=== PATIENT | male | born 1950 | race Caucasian/White ===

== ENCOUNTER 2017-01-23 10:38 | Inpatient (IN) | payer OTHER, MEDICAID ==
--- NOTE | 2017-01-22 17:08 | GHP ---
[f rep st] PREOP HISTORY AND PHYSICAL ADMISSION DIAGNOSIS: Prostate cancer. HISTORY OF PRESENT ILLNESS: This is a 66-year-old gentleman who has had adenocarcinoma of the prostate. He has had a 4K score of 53%. MRI revealed left-sided high PI-RAD 5 lesion, and prostate biopsy revealed a Michael score of 7 cancer of the prostate. He has reviewed his options of therapy and has elected to undergo bilateral pelvic lymphadenectomy and radical retropubic prostatectomy robotically. Indication, complications, and options have all been discussed. PAST MEDICAL HISTORY: Asthma, hypertension, hypercholesterolemia, prostate cancer. PAST SURGICAL HISTORY: Eye surgery, hand, inguinal hernia, and tonsillectomy. MEDICATIONS: Aspirin, lisinopril, simvastatin, and Ventolin. ALLERGIES: Percocet, penicillin, and morphine. FAMILY HISTORY: For heart disease, prostate cancer, and hypertension. SOCIAL HISTORY: Nondrinker. Former tobacco smoker. Immunizations up to date. REVIEW OF SYSTEMS: Negative cardiac, respiratory, GI, and endocrine. PHYSICAL EXAMINATION: VITAL SIGNS: Stable. CHEST: Clear. HEART: Regular rate and rhythm. ABDOMEN: Normal. No organomegaly, rebound, or guarding. : Prostate on previous exam showed nodule at the apex of the prostate. At the present time, he is admitted for bilateral pelvic lymphadenectomy and radical retropubic prostatectomy. His PSA as of 11/11/2016 was 40, and he is admitted as noted. /[id number]/MODL MTDD
[2017-01-23] MEDS ORDERED: BUPIVACAINE 0.5% 30 ML SDV ONE (10:58)
[2017-01-23] MEDS ORDERED: LR 1,000 ML IV ONE (11:11)
[2017-01-23] MEDS ORDERED: ceFAZolin 2 GM/SWFI 2 GM/20 ML SYR IVP ONE (12:49)
--- NOTE | 2017-01-23 12:49 | PDHPUP ---
History & Physical Update H&P update statement: This history and physical update is based on an assessment of the patient which was completed after admission or registration (within 24 hours), but prior to the surgery/procedure. H&P update: H&P reviewed & patient examined, no change in patient's condition since H&P completed
[2017-01-23] MEDS ORDERED: MIDAZOLAM 2 MG/2 ML VIAL ONE (13:08)
[2017-01-23] MEDS ORDERED: MIDAZOLAM 2 MG/2 ML VIAL IVP ONE (13:09)
--- NOTE | 2017-01-23 13:12 | PDANEPAE ---
ANE History of Present Illness prostate CA s/f DaVinci assisted prostatectomy ANE Past Medical History - Cardiovascular History Hx Hypertension: Yes Hx Arrhythmias: No Hx Chest Pain: No Hx Coronary Artery / Peripheral Vascular Disease: No Hx CHF / Valvular Disease: Yes Hx Palpitations: No Cardiovascular History Comment: leaky aortic valve-mild AI - Pulmonary History Hx COPD: No Hx Asthma/Reactive Airway Disease: Yes Hx Recent Upper Respiratory Infection: No Hx Oxygen in Use at Home: No Hx Sleep Apnea: No Sleep Apnea Screening Result - Last Documented: Positive Pulmonary History Comment: mild asthma allergy triggered - Neurologic History Hx Cerebrovascular Accident: No Hx Seizures: No Hx Dementia: No - Endocrine History Hx Diabetes: No - Renal History Hx Renal Disorders: No - Liver History Hx Hepatic Disorders: No - Neurological & Psychiatric Hx Hx Neurological and Psychiatric Disorders: No - Cancer History Hx Cancer: Yes Cancer History Comment: prostate cancer - Congenital Disorder History Hx Congenital Disorders: No - GI History Hx Gastrointestinal Disorders: No - Other Health History Other Health History: bridge - Chronic Pain History Chronic Pain: No - Surgical History Prior Surgeries: hernia ANE Review of Systems Review of Systems: - Exercise capacity METS (RN): 5 METS ANE Patient History - Allergies Allergies/Adverse Reactions: acetaminophen [From Percocet] Allergy (Verified 01/13/17 14:33) Vomiting morphine Allergy (Verified 01/13/17 14:33) Anaphylaxis Shock oxycodone [From Percocet] Allergy (Verified 01/13/17 14:33) Vomiting Penicillins Allergy (Verified 01/13/17 14:33) Hives - Home Medications Home medications: home medication list seen and reviewed Home Medications: Albuterol [Proventil Inhaler HFA (*)] 1 - 2 puffs IH DAILY PRN 01/13/17 [Last Taken 01/22/17] Aspirin [Aspirin 81mg (*)] 81 mg PO DAILY 01/13/17 [Last Taken 01/02/17] Herbals/Supplements -Info Only 1 ea PO DAILY 01/13/17 [Last Taken 01/20/17] Losartan Potassium [Cozaar 50 mg (*)] 50 mg PO DAILY 01/13/17 [Last Taken 07:00] [place]-3 Fatty Acids [Fish Oil 1000 mg (*)] 1,000 mg PO DAILY 01/13/17 [Last Taken 01/20/17] Simvastatin [Zocor] 40 mg PO DAILY18 01/13/17 [Last Taken 01/22/17 18:00] - NPO status NPO Status: no food or drink >8 hours NPO Since - Liquids (Date): 01/22/17 NPO Since - Liquids (Time): 22:30 NPO Since - Solids (Date): 01/22/17 NPO Since - Solids (Time): 18:30 - Anes Hx Anes Hx: no prior problems - Smoking Hx Smoking Status: Never smoked - Alcohol Use Alcohol Use: None - Family Anes Hx Family Hx Anesthesia Complications: none ANE Labs/Vital Signs - Labs - CBC WBC: reviewed and okay - Vital Signs Blood Pressure: 167/97 Heart Rate: 65 Respiratory Rate: 17 O2 Sat (%): 95 Height: 157.48 cm Weight: 63.503 kg ANE Physical Exam - Airway Mallampati Score: Class 1 Mouth exam: normal dental/mouth exam - Pulmonary Pulmonary: no respiratory distress - Cardiovascular Cardiovascular: regular rate and rhythym - ASA Status ASA Status: II ANE Anesthesia Plan Anesthesia Plan: general endotracheal anesthesia (R/B/A explained and patient agrees to proceed)
[2017-01-23] MEDS ORDERED: ROCURONIUM 100 MG/10 ML VIAL ONE (13:14)
[2017-01-23] MEDS ORDERED: fentaNYL 100 MCG/2 ML INJ ONE ×3 (13:14→17:10)
[2017-01-23] MEDS ORDERED: PROPOFOL/EMULSION 500 MG/50 ML BOTTLE IV ONE (13:14)
[2017-01-23] MEDS ORDERED: LIDOCAINE HCL 160 MG/4 ML LTA KIT TP ONE (13:15)
[2017-01-23] MEDS ORDERED: DEXAMETHASONE 4 MG/ML VIAL ONE ×2 (13:15)
[2017-01-23] MEDS ORDERED: ONDANSETRON 4 MG/2 ML VIAL ONE (13:15)
[2017-01-23] MEDS ORDERED: LIDOCAINE 2% 100 MG/5 ML SYR ONE (13:15)
[2017-01-23] MEDS ORDERED: ROCURONIUM 50 MG/5 ML VIAL ONE (14:33)
[2017-01-23] MEDS ORDERED: THROMBIN(HUM PLAS)/FIBRINOG/CA 5 ML VIAL TP ONE ×2 (14:44→15:16)
[2017-01-23] MEDS ORDERED: PROPOFOL 200 MG/20 ML VIAL ONE ×2 (14:45→15:39)
[2017-01-23] MEDS ORDERED: SUGAMMADEX SODIUM 200 MG/2 ML VIAL IVP ONE (16:03)
[2017-01-23] MEDS ORDERED: GLYCOPYRROLATE 0.2 MG/1 ML VIAL ONE (16:08)
[2017-01-23] MEDS ORDERED: HYDROCODONE/APAP 5/325 TAB PO PRN (16:11)
[2017-01-23] MEDS ORDERED: ONDANSETRON 4 MG/2 ML VIAL IVP PRN ×2 (16:11→16:47)
[2017-01-23] MEDS ORDERED: MEPERIDINE 25 MG/ML SYR IVP PRN (16:11)
[2017-01-23] MEDS ORDERED: ACETAMINOPHEN 500 MG TAB PO PRN (16:11)
[2017-01-23] MEDS ORDERED: NALOXONE HCL 0.4 MG/ML INJ IVP PRN (16:11)
[2017-01-23] MEDS ORDERED: METOCLOPRAMIDE 10 MG/2 ML VIAL IVP PRN (16:11)
[2017-01-23] MEDS ORDERED: PROMETHAZINE HCL 25 MG/ML INJ IVP PRN (16:11)
[2017-01-23] MEDS ORDERED: DEXAMETHASONE 4 MG/ML VIAL IVP PRN (16:11)
[2017-01-23] MEDS ORDERED: ALBUTEROL 3 ML DEYVIAL IH PRN (16:11)
[2017-01-23] MEDS ORDERED: HYDROmorphONE/DILAUDID 1 MG/ML INJ IVP PRN (16:11)
[2017-01-23] MEDS ORDERED: LR 500 ML IV PRN (16:11)
[2017-01-23] MEDS ORDERED: MEPERIDINE 25 MG/ML SYR ONE (16:45)
[2017-01-23] MEDS ORDERED: ALBUTEROL 200 PUFFS/18 GM MDI IH PRN (16:46)
[2017-01-23] MEDS ORDERED: ACETAMINOPHEN 325 MG TAB PO PRN (16:47)
[2017-01-23] MEDS ORDERED: ONDANSETRON DISINTEGRATING 4 MG TAB PO PRN (16:47)
[2017-01-23] MEDS ORDERED: ZOLPIDEM TARTRATE 5 MG TAB PO PRN (16:58)
[2017-01-23] MEDS: fentaNYL 100 MCG/2 ML INJ IVP PRN ×2 (17:11→17:26)
--- NOTE | 2017-01-23 17:13 | GOP ---
[f rep st] OPERATIVE REPORT DATE OF OPERATION: 01/23/2017 SURGEON: Gregorio Saab MD [employer] SUPERINTENDENT: Amberly Santos CFA. ANESTHESIA: General anesthesia. ANESTHESIOLOGIST: Michael Posadas MD. PREOPERATIVE DIAGNOSIS: Adenocarcinoma of the prostate. POSTOPERATIVE DIAGNOSIS: Adenocarcinoma of the prostate. PROCEDURE PERFORMED: Robotic assisted radical prostatectomy and bilateral pelvic lymphadenectomy. FINDINGS: SPECIMENS: Sent to pathology. I will call his brother to describe his postoperative findings. ESTIMATED BLOOD LOSS: Per Anesthesia 150 mL. DESCRIPTION OF PROCEDURE: After undergoing general anesthesia, being prepped and draped in normal st erile fashion in the appropriate robotic position, an appropriate time-out was fulfilled. Then at th at point, a Veress needle was placed through the supraumbilical site and abdomen was insufflated to 1 5 mmHg pressure with CO2 and then at that point, under direct vision two 12 mm ports were placed and three 8 mm ports were placed. I then docked the robot and with robotic instrumentation was able to m obilize the sigmoid colon and bring the colon out of the pelvis and identify the vasa on both the rig ht and left sides as they went into the base of the prostate. The peritoneum was incised and develop ed a plane between the seminal vesicles and the bladder. The seminal vesicles, posterior part of the bladder anterior to the rectum. He did have some inflammation on the left side that seemed to get m ore thickened. Then the vasa were transected. Seminal vesicles dissected out and hemostasis via marah ctrocautery and Hem-o-loks. I went to the anterior part of the bladder. He had a previous laparosco pic hernia repair and he had welding of the bladder to the mesh in a posterior fashion, so I dissecte d off by staying on the mesh and took the bladder down to where I could identify the endopelvic fasci a on the right and left sides. This mesh actually went below the symphysis pubis and somewhat oblite rated the anterior prostatic space, and the bladder was adhered to a densely, but no cystotomies were made during the dissection. I incised the endopelvic fascia on the right and left sides and then th e pubic prostatic ligaments taken down. Deep dorsal vein was ligated with 2 #0 Vicryl sutures and th en focused attention to the bladder neck. I tried to preserve the circular fibers of the bladder nec k the best way possible. The anterior bladder as noted previously was thin from the prior laparoscop ic hernia and welding of the bladder to the mesh. I opened the anterior part of the bladder neck and then identified the posterior bladder neck which was incised, and then dissected out the neurovascul ar bundle on the left side and the right side both and hemostasis with Hem-o-loks. At that point, fo cused attention then to the apex of the prostate and that was taken down sharply. Because of the sca rring, the sutures that were on the dorsal vein came off so increased the pressure to 20 mmHg pressur e. Then used A V-lock stitch to close the deep dorsal vein of the penis. Then, at that point, compl eted the apical dissection and grossly there was no residual cancer identified at that point. Then t he urethrovesical anastomosis was performed using a running 3-0 Monocryl suture. It was tested to be watertight and bridged with the Veras catheter and urine getting clear. At that point, used Evicel for anastomotic reinforcement. Then the pelvic lymphadenectomy on the left side. Dissection margins in the mid aspect, the external iliac vein down to the obturator nerve and up to the bifurcation of the common iliac vein. There was only fibrous areolar tissue and there was really not much lymph nod al tissue in that grossly. Then on the right side same dissection margins, and there was what appear ed to be 1 large lymph node that was normal in appearance and lymphostasis was provided with Hem-o-lo ks. At that point, the specimen was placed in a bag and then Fan-Cormier drain was placed in the s pace of Retzius and brought out through 1 of the port sites and then undocked the robot and fascial s uture closure device to use on the 12 mm promotional advertising assistant port site and then opened the camera incision so I could deliver the bag and the specimen and closed the anterior rectus fascia and linea alba with a r unning 0 Vicryl at approximately 5 mm depth back and 5 mm in between each 1 they were closed. At ramiro t point, the wounds were irrigated and 4-0 Monocryl used to close the skin edges. Drain was sewn in place with a 3-0 Vicryl silk and he tolerated the procedure well. /[id number]/MODL
[2017-01-23] MEDS ORDERED: KETOROLAC 15 MG/1 ML SDV IVP PRN (17:14)
[2017-01-23] MEDS ORDERED: LABETALOL HCL 5 MG/ML 20 ML MDV ONE (17:19)
[2017-01-23] MEDS: LABETALOL HCL 5 MG/ML 20 ML MDV IVP PRN ×5 (17:19→18:11)
[2017-01-23] MEDS ORDERED: ATORVASTATIN CALCIUM 20 MG TAB PO SCH (18:00)
--- NOTE | 2017-01-23 18:22 | POSTANESTH ---
Post Anesthetic Evaluation Cardiovascular Status: Tx Hyper/Hypo-tension (diatolics 100-105 treatment underway) Respiratory Status: Normal, Stable Level of Consciousness/Mental Status: Can Participate in Eval Pain Control: Adequate, Prn Tx Ordered Nausea/Vomiting Control: Adequate, Prn Tx Ordered Complications Possibly Related to Anesthesia: None Noted
[2017-01-23] MEDS: D5W 1/2 NS 1,000 ML IV SCH (19:28)
[2017-01-23] MEDS: SIMVASTATIN 40MG TAB PO SCH (19:49)
[2017-01-24 04:57] LABS: PLATELET COUNT 163 10^3/uL (150-400)
[2017-01-24] MEDS: D5W 1/2 NS 1,000 ML IV SCH ×2 (05:43→16:20)
[2017-01-24] MEDS: IBUPROFEN 200 MG TAB PO PRN ×3 (05:49→18:59)
[2017-01-24] MEDS ORDERED: Herbals/Supplements -Info Only PO SCH (09:00)
[2017-01-24] MEDS: ASPIRIN 81 MG CHEWABLE TAB PO SCH (09:08)
[2017-01-24] MEDS: OMEGA-3 FATTY ACIDS 1,000 MG CAP PO SCH (09:08)
[2017-01-24] MEDS: LOSARTAN POTASSIUM 50 MG TAB PO SCH (09:11)
--- NOTE | 2017-01-24 14:30 | SOAPPROG ---
SOAP Progress Note Assessment/Plan: Assessment: post op prostatectomy Plan: Continue to ambulate. Consider d/c tomorrow. 01/24/17 14:28 Subjective: Gas pain but otherwise doing well. Not ready for d/c Objective: Vital Signs Temp Pulse Resp BP Pulse Ox 36.9 C 57 L 16 133/71 H 94 01/24/17 11:12 01/24/17 11:12 01/24/17 11:12 01/24/17 11:12 01/24/17 11:12 Laboratory Results 01/24/17 04:50 01/24/17 04:50 01/23/17 01/24/17 01/25/17 05:59 05:59 05:59 Intake Total 2000 Output Total 1020 610 Balance -1020 1390 Physical Exam - Physical Exam General Appearance: alert, no apparent distress Respiratory: normal breath sounds, No respiratory distress Cardiac/Chest: regular rate, rhythm Abdomen: No distended (CARLOS MANUEL draining bloody fluid into bag. Lightly bloody urine in ortiz.) ICD10 Worksheet Patient Problems: Problems Problem Status Onset Prostate cancer Acute - ICD10 Problem Qualifiers (1) Prostate cancer
--- NOTE | 2017-01-24 14:30 | SOAPPROG ---
SOAP Progress Note Assessment/Plan: Assessment: post op prostatectomy Plan: Continue to ambulate. Consider d/c tomorrow. 01/24/17 14:28 Subjective: Gas pain but otherwise doing well. Not ready for d/c Objective: Vital Signs Temp Pulse Resp BP Pulse Ox 36.9 C 57 L 16 133/71 H 94 01/24/17 11:12 01/24/17 11:12 01/24/17 11:12 01/24/17 11:12 01/24/17 11:12 Laboratory Results 01/24/17 04:50 01/24/17 04:50 01/23/17 01/24/17 01/25/17 05:59 05:59 05:59 Intake Total 2000 Output Total 1020 610 Balance -1020 1390 Physical Exam - Physical Exam General Appearance: alert, no apparent distress Respiratory: normal breath sounds, No respiratory distress Cardiac/Chest: regular rate, rhythm Abdomen: No distended (CARLOS MANUEL draining bloody fluid into bag. Lightly bloody urine in ortzi.) ICD10 Worksheet Patient Problems: Problems Problem Status Onset Prostate cancer Acute - ICD10 Problem Qualifiers (1) Prostate cancer
[2017-01-24] MEDS: SIMVASTATIN 40MG TAB PO SCH (17:16)
[2017-01-25] MEDS: D5W 1/2 NS 1,000 ML IV SCH (02:17)
[2017-01-25 05:26] VITALS: O2SAT 94
[2017-01-25 07:42] VITALS: BP 162/84; PULSE 62; RESP 17; TEMP 98.5
--- NOTE | 2017-01-25 08:12 | SOAPPROG ---
SOAP Progress Note Assessment/Plan: Assessment: Prostate cancer Acute POD 2, CARLOS MANUEL drain had some urine and plan to continue present drainage and will dc with ortiz and CARLOS MANUEL drain Plan: As noted 01/25/17 08:10 Subjective: doing well Objective: Vital Signs Temp Pulse Resp BP Pulse Ox 36.9 C 62 17 162/84 H 94 01/25/17 07:32 01/25/17 07:32 01/25/17 07:32 01/25/17 07:32 01/25/17 07:32 Laboratory Results 01/24/17 04:50 01/24/17 04:50 01/24/17 01/25/17 01/26/17 05:59 05:59 05:59 Intake Total 4834 Output Total 1020 3930 Balance -1020 904 Physical Exam - Physical Exam General Appearance: alert Respiratory: No respiratory distress Cardiac/Chest: regular rate, rhythm Abdomen: soft Back: No CVA tenderness Neuro/Psych: alert, oriented x 3 ICD10 Worksheet Patient Problems: Problems Problem Status Onset Prostate cancer Acute
[2017-01-25] MEDS: IBUPROFEN 200 MG TAB PO PRN (09:12)
[2017-01-25] MEDS: ASPIRIN 81 MG CHEWABLE TAB PO SCH (09:13)
[2017-01-25] MEDS: OMEGA-3 FATTY ACIDS 1,000 MG CAP PO SCH (09:13)
[2017-01-25] MEDS: LOSARTAN POTASSIUM 50 MG TAB PO SCH (09:13)
--- NOTE | 2017-01-25 14:29 | ASDISCHSUM ---
Discharge Information Plan Status: Medically Cleared to Leave: Discharge Date:01/25/2017 01:20 PM CM D/C Disposition: ADT D/C Disposition:Home, Routine, Self-Care Projected Discharge Date:01/25/2017 01:20 PM Transportation at D/C: Discharge Delay Reason: Follow-Up Date:01/25/2017 01:20 PM Discharge Slot: Final Diagnosis: Placement Information Patient Contact Information Contact Name:SHARI Relationship: Address:[address] City:[place] Alternate Phone: State/Zip Code:[place] [address] Email: Financial Information Financial Class: Primary Plan Desc:MEDICARE INPATIENT Primary Plan Number:[id number] Secondary Plan Desc:[place] Secondary Plan Number:[id number] Assessment Information [facility] CM Progress Note CM Note CM Note Notes: Pt admitted for prostatectomy. He will DC today with no needs. Date Signed: 01/25/2017 02:27 PM Electronically Signed By:Monae Santiago LCSW Intervention Information
--- NOTE | 2017-01-25 14:29 | ASDISCHSUM ---
Discharge Information Plan Status: Medically Cleared to Leave: Discharge Date:01/25/2017 01:20 PM CM D/C Disposition: ADT D/C Disposition:Home, Routine, Self-Care Projected Discharge Date:01/25/2017 01:20 PM Transportation at D/C: Discharge Delay Reason: Follow-Up Date:01/25/2017 01:20 PM Discharge Slot: Final Diagnosis: Placement Information Patient Contact Information Contact Name:SHARI Relationship: Address:[address] City:[place] Alternate Phone: State/Zip Code:[place] [address] Email: Financial Information Financial Class: Primary Plan Desc:MEDICARE INPATIENT Primary Plan Number:[id number] Secondary Plan Desc:[place] Secondary Plan Number:[id number] Assessment Information [facility] CM Progress Note CM Note CM Note Notes: Pt admitted for prostatectomy. He will DC today with no needs. Date Signed: 01/25/2017 02:27 PM Electronically Signed By:Monae Santiago LCSW Intervention Information
--- NOTE | 2017-01-25 14:29 | ASDISCHSUM ---
Discharge Information Plan Status: Medically Cleared to Leave: Discharge Date:01/25/2017 01:20 PM CM D/C Disposition: ADT D/C Disposition:Home, Routine, Self-Care Projected Discharge Date:01/25/2017 01:20 PM Transportation at D/C: Discharge Delay Reason: Follow-Up Date:01/25/2017 01:20 PM Discharge Slot: Final Diagnosis: Placement Information Patient Contact Information Contact Name:SHARI Relationship: Address:[address] City:[place] Alternate Phone: State/Zip Code:[place] [address] Email: Financial Information Financial Class: Primary Plan Desc:MEDICARE INPATIENT Primary Plan Number:[id number] Secondary Plan Desc:[place] Secondary Plan Number:[id number] Assessment Information [facility] CM Progress Note CM Note CM Note Notes: Pt admitted for prostatectomy. He will DC today with no needs. Date Signed: 01/25/2017 02:27 PM Electronically Signed By:Monae Santiago LCSW Intervention Information
== END 2017-01-25 13:20 | disposition home or self-care (01) | DRG 708 ==
LOC: F3E 10:38 → F1N 18:30
PROVIDERS: ADMIT Specialist; ATTEND Specialist
PROC: 0VT04ZZ Resection of Prostate, Percutaneous Endoscopic Approach (ICD-10-PCS; principal; 2017-01-23 12:30)
PROC: 8E0W4CZ Robotic Assisted Procedure of Trunk Region, Percutaneous Endoscopic Approach (ICD-10-PCS; principal; 2017-01-23 12:30)
PROC: 07BC4ZX Excision of Pelvis Lymphatic, Percutaneous Endoscopic Approach, Diagnostic (ICD-10-PCS; principal; 2017-01-23 12:30)
CPT/HCPCS: J0690; J1100; J1885; J2001; J2250; J2405; J2704; J3010; J3490

== ENCOUNTER → 2017-07-29 | Outpatient (CLI) | payer OTHER, MEDICAID | LOC: BHCLAF 10:00 | PROVIDERS: ATTEND Internal Medicine Cardiovascular Disease | DX: I35.1 Nonrheumatic aortic (valve) insufficiency (principal); I35.0 Nonrheumatic aortic (valve) stenosis; I10 Essential (primary) hypertension; E78.00 Pure hypercholesterolemia, unspecified | CPT/HCPCS: 93005-PO ==

== ENCOUNTER → 2017-08-12 | Outpatient (CLI) | payer OTHER, MEDICAID | LOC: BHFA 11:30 | PROVIDERS: ATTEND Internal Medicine Cardiovascular Disease | DX: I35.1 Nonrheumatic aortic (valve) insufficiency (principal) ==

== ENCOUNTER → 2017-11-12 | Outpatient (CLI) | payer MEDICAID, OTHER | LOC: FIMAGING 07:37 | PROVIDERS: ATTEND Family Medicine | DX: R19.03 Right lower quadrant abdominal swelling, mass and lump (principal) ==

== ENCOUNTER 2018-08-10 09:54 | Day surgery (SDC) | payer OTHER, MEDICAID ==
[2018-08-10] MEDS ORDERED: ceFAZolin 2 GM/DEXTROSE 100 ML IV ONE (10:12)
[2018-08-10] MEDS ORDERED: LR 1,000 ML IV ONE (10:13)
[2018-08-10] MEDS ORDERED: BUPIVACAINE 0.5% 30 ML SDV ONE (12:35)
--- NOTE | 2018-08-10 12:59 | PDANEPAE ---
ANE History of Present Illness ventral hernia, here for repair with robotic assist ANE Past Medical History - Cardiovascular History Hx Hypertension: Yes Hx Arrhythmias: No Hx Chest Pain: No Hx Coronary Artery / Peripheral Vascular Disease: Yes Hx CHF / Valvular Disease: Yes Hx Palpitations: No Cardiovascular History Comment: AORTIC VALVE STENOSIS. HYPERLIPIDEMIA - Pulmonary History Hx COPD: No Hx Asthma/Reactive Airway Disease: Yes Hx Recent Upper Respiratory Infection: No Hx Oxygen in Use at Home: No Hx Sleep Apnea: No Sleep Apnea Screening Result - Last Documented: Positive Pulmonary History Comment: mild asthma allergy triggered -allergies. inhaler - Neurologic History Hx Cerebrovascular Accident: No Hx Seizures: No Hx Dementia: No - Endocrine History Hx Diabetes: No - Renal History Hx Renal Disorders: No - Liver History Hx Hepatic Disorders: No - Neurological & Psychiatric Hx Hx Neurological and Psychiatric Disorders: No - Cancer History Hx Cancer: Yes Cancer History Comment: prostate cancer - Congenital Disorder History Hx Congenital Disorders: No - GI History Hx Gastrointestinal Disorders: No - Other Health History Other Health History: past mild anemia w/cancer tx. bridge partial - Chronic Pain History Chronic Pain: No - Surgical History Prior Surgeries: PROSTATECTOMY. ING HERNIA. HAND SURGERY. EYE SURGERY TEENS. TONSILLECTOMY. WISDOM TEETH. CATARACTS ANE Review of Systems Review of Systems: - Exercise capacity METS (RN): 5 METS ANE Patient History - Allergies Allergies/Adverse Reactions: morphine Allergy (Severe, Verified 01/23/17 16:28) Anaphylaxis Shock acetaminophen [From Percocet] Allergy (Verified 01/13/17 14:33) Vomiting oxycodone [From Percocet] Allergy (Verified 01/13/17 14:33) Vomiting Penicillins Allergy (Verified 01/13/17 14:33) Hives - Home Medications Home Medications: Albuterol [Proventil Inhaler HFA (*)] 1 - 2 puffs IH DAILY PRN 01/13/17 [Last Taken 08/10/18] Aspirin [Aspirin 81mg (*)] 81 mg PO DAILY 01/13/17 [Last Taken 2 Weeks Ago ~] Herbals/Supplements -Info Only 1 ea PO DAILY 01/13/17 [Last Taken 1 Week Ago ~] Losartan Potassium [Cozaar 50 mg (*)] 50 mg PO DAILY 01/13/17 [Last Taken ] [place]-3 Fatty Acids [Fish Oil 1000 mg (*)] 1,000 mg PO DAILY 01/13/17 [Last Taken 1 Week Ago ~08/03/18] Simvastatin [Zocor] 40 mg PO DAILY18 01/13/17 [Last Taken 08/09/18] - NPO status NPO Since - Liquids (Date): 08/10/18 NPO Since - Liquids (Time): 07:00 NPO Since - Solids (Date): 08/09/18 NPO Since - Solids (Time): 20:00 - Smoking Hx Smoking Status: Never smoked - Family Anes Hx Family Hx Anesthesia Complications: none ANE Labs/Vital Signs - Vital Signs Blood Pressure: 184/98 Heart Rate: 59 Respiratory Rate: 16 O2 Sat (%): 97 Height: 157.48 cm Weight: 67.132 kg ANE Physical Exam - Airway Neck exam: FROM Mallampati Score: Class 2 Mouth exam: normal dental/mouth exam - Pulmonary Pulmonary: no respiratory distress, no rales or rhonchi - Cardiovascular Cardiovascular: regular rate and rhythym, no murmur, rub, or gallop - ASA Status ASA Status: III ANE Anesthesia Plan Anesthesia Plan: general endotracheal anesthesia Regional Anesthesia: single shot NB Total IV Anesthesia: No
[2018-08-10] MEDS ORDERED: MIDAZOLAM 2 MG/2 ML VIAL IVP ONE (13:00)
[2018-08-10] MEDS ORDERED: ROCURONIUM 100 MG/10 ML VIAL ONE (14:30)
[2018-08-10] MEDS ORDERED: PROPOFOL 200 MG/20 ML VIAL ONE (14:30)
[2018-08-10] MEDS ORDERED: LIDOCAINE 2% 100 MG/5 ML SYR ONE (14:30)
[2018-08-10] MEDS ORDERED: fentaNYL 100 MCG/2 ML INJ ONE (14:30)
[2018-08-10] MEDS ORDERED: KETOROLAC 30 MG/1 ML SDV ONE (16:11)
[2018-08-10] MEDS ORDERED: ONDANSETRON 4 MG/2 ML VIAL ONE (16:11)
[2018-08-10] MEDS ORDERED: ROCURONIUM 50 MG/5 ML VIAL ONE (16:11)
[2018-08-10] MEDS ORDERED: SUGAMMADEX SODIUM 200 MG/2 ML VIAL IVP ONE (16:11)
[2018-08-10] MEDS ORDERED: DEXAMETHASONE 4 MG/ML VIAL ONE (16:11)
[2018-08-10] MEDS ORDERED: HYDROmorphONE/DILAUDID 2 MG/ML INJ ONE (16:30)
[2018-08-10] MEDS ORDERED: NALOXONE HCL 0.4 MG/ML INJ IVP PRN (16:34)
[2018-08-10] MEDS ORDERED: fentaNYL 100 MCG/2 ML INJ IVP PRN (16:34)
[2018-08-10] MEDS ORDERED: MEPERIDINE 25 MG/0.5 ML AMP IVP PRN (16:34)
[2018-08-10] MEDS ORDERED: HYDROCODONE/APAP 5/325 TAB PO PRN (16:34)
[2018-08-10] MEDS ORDERED: PROMETHAZINE HCL 25 MG/ML INJ IVP PRN (16:34)
[2018-08-10] MEDS ORDERED: HYDROmorphONE/DILAUDID 1 MG/ML INJ IVP PRN (16:34)
[2018-08-10] MEDS ORDERED: ALBUTEROL 3 ML DEYVIAL IH PRN (16:34)
[2018-08-10] MEDS ORDERED: METOCLOPRAMIDE 10 MG/2 ML VIAL IVP PRN (16:34)
[2018-08-10] MEDS ORDERED: LR 500 ML IV PRN (16:34)
--- NOTE | 2018-08-10 16:43 | POSTOPPROG ---
Post Op Note Date of Operation: 08/10/18 Surgeon: Roni Painter User Experience Architect: Brittany Brown Anesthesiologist: Anabella Rain Anesthesia: GET(General Endotracheal) Pre-op Diagnosis: incisional supraumbilical VH Post-op Diagnosis: same Procedure: da jurgen assisted VH repair c mesh Findings: midline defect Inf/Abcess present in the surg proc area at time of surgery?: No EBL: Minimal Bowel Protocol: N/A Clean Closure Performed: N/A Specimen(s): none
--- NOTE | 2018-08-10 16:46 | POSTANESTH ---
Post Anesthetic Evaluation Cardiovascular Status: Normal, Stable Respiratory Status: Normal, Stable Level of Consciousness/Mental Status: Can Participate in Eval, Alert and Oriented Pain Control: Adequate, Prn Tx Ordered Nausea/Vomiting Control: Adequate, Prn Tx Ordered Complications Possibly Related to Anesthesia: None Noted
[2018-08-10] MEDS ORDERED: HYDROCODONE/APAP 5/325 TAB ONE (17:46)
[2018-08-10 17:48] VITALS: BP 135/69
== END 2018-08-10 18:11 | disposition home or self-care (01) ==
LOC: FSGY 09:54
PROVIDERS: ATTEND Surgery
PROC: 0WUF4JZ Supplement Abdominal Wall with Synthetic Substitute, Percutaneous Endoscopic Approach (ICD-10-PCS; principal; 2018-08-10 11:45)
DX: K43.2 Incisional hernia without obstruction or gangrene (principal); I10 Essential (primary) hypertension; I35.0 Nonrheumatic aortic (valve) stenosis; E78.5 Hyperlipidemia, unspecified; J45.909 Unspecified asthma, uncomplicated; Z85.46 Personal history of malignant neoplasm of prostate; Z92.3 Personal history of irradiation
CPT/HCPCS: C1781; J0690; J1100; J1170; J1885; J2001; J2250; J2405; J2704; J3010